=== PATIENT | male | born 2000 | race Hispanic/Latino ===

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

== ENCOUNTER 2020-04-12 08:21 | Emergency (ER) | payer OTHER, SELFPAY | END 2020-04-12 09:45 | disposition home or self-care (01) | LOC: ERS 08:21 | DX: H92.01 Otalgia, right ear (principal) | CPT/HCPCS: 99281 ==